=== PATIENT | female | born 1965 ===

== ENCOUNTER → 2021-12-15 | Outpatient (CLI) | payer OTHER | END | disposition home or self-care (01) | LOC: SONOGRAMA 09:59 | PROVIDERS: ATTEND Surgery | DX: N60.11 Diffuse cystic mastopathy of right breast (principal); N60.12 Diffuse cystic mastopathy of left breast ==

== ENCOUNTER 2022-04-27 06:58 | Day surgery (SDC) | payer OTHER ==
[~2022-04-27] VITALS: Ht 157.5 cm; Wt 67.1 kg
== END 2022-04-27 19:30 | disposition home or self-care (01) ==
LOC: CIR.AMB 06:58
PROVIDERS: ATTEND Surgery
DX: N60.81 Other benign mammary dysplasias of right breast (principal); N62 Hypertrophy of breast; Z20.822 Contact with and (suspected) exposure to COVID-19